=== PATIENT | female | born 1955 | race Caucasian/White ===

== ENCOUNTER 2019-04-05 00:24 | Outpatient (CLI) | payer SELFPAY ==
[2019-04-05 09:04] LABS: CHOL/HDL RATIO 1.85 (0.00-4.99)
[2019-04-05 09:08] LABS: HEMOGLOBIN A1C 4.9 % (4.5-6.2)
== END 2019-04-05 23:59 | disposition home or self-care (01) ==
LOC: HW HEART 00:24
DX: Z13.6 Encounter for screening for cardiovascular disorders (principal)
CPT/HCPCS: 36415

== ENCOUNTER 2019-04-19 04:22 | Outpatient (CLI) | payer SELFPAY | END 2019-04-19 23:59 | disposition home or self-care (01) | LOC: VAS 04:22 | DX: Z13.6 Encounter for screening for cardiovascular disorders (principal) ==

== ENCOUNTER → 2024-01-08 | Outpatient (CLI) | payer BC, OTHER | END | disposition home or self-care (01) | LOC: RAD 14:10 | PROVIDERS: ATTEND Otolaryngology | DX: R13.12 Dysphagia, oropharyngeal phase (principal); R13.14 Dysphagia, pharyngoesophageal phase | CPT/HCPCS: 74230 ==